=== PATIENT | female | born 1960 | race Two or more races ===

== ENCOUNTER 2017-07-03 17:16 | Emergency (ER) | payer MEDICARE, OTHER ==
[~2017-07-03] VITALS: Ht 165.1 cm; Wt 97.5 kg
[2017-07-03 17:25] VITALS: BP 157/90
[2017-07-03] MEDS ORDERED: NOREPINEPHRINE 8 MG/250ML KIT 250 ML IV ONE (19:37)
== END 2017-07-03 20:34 | disposition home or self-care (01) ==
LOC: ER 17:16
DX: S02.2XXA Fracture of nasal bones, initial encounter for closed fracture (principal); S00.03XA Contusion of scalp, initial encounter; R55 Syncope and collapse; W19.XXXA Unspecified fall, initial encounter; Y93.89 Activity, other specified; Y99.8 Other external cause status; Y92.89 Other specified places as the place of occurrence of the external cause
CPT/HCPCS: 70160; 70450